=== PATIENT | female | born 1960 | race Caucasian/White ===

== ENCOUNTER 2022-04-05 12:28 | Emergency (ER) | payer MEDICAID, OTHER ==
[~2022-04-05] VITALS: Ht 154.9 cm; Wt 59.0 kg
[~2022-04-05 12:28] MED LIST: ACET-3117 PO; CITA20TA15 PO; DOCU100C82 PO; FERR325E14 PO; GABA300C PO; HYDR-5191 PO; TRAM-748 PO; TRAZ-343 PO; [UNRECOGNIZED DRUG - CODE] PO
[2022-04-05 12:34] VITALS: BP 130/78
--- NOTE | 2022-04-05 14:29 | NUR ---
Patient being evaluated by WALDEMAR PERRIN at TRIAGE ROOM.
--- NOTE | 2022-04-05 15:37 | NUR ---
PT TO ER BED 12 VIA W/C
--- NOTE | 2022-04-05 15:45 | NUR ---
Note undone in EDM - 04/05/22 at 1659 by [facility] PATIENT PRESENTS TO ED WITH RASH . PT STATES SHE HAS HAD A BAD RASH FOR ABOUT 3 WEEKS PAINFUL UPON MOVEMENT, BURING SENSATION 8-10. DENIES N/V/D; SKIN IS PINK/WARM/DRY;SKIN AROUND HIPS IS RED AND APPEARS SLIGHTLY INFLAMMED, SKIN PRESENT. AAOX4 WITH WEAK GAIT, AMULATES WITH ASSISNTANCE.; LUNGS CLEAR BL; HR EVEN AND REGULAR; PT DENIES ANY FEVER, CP, SOB, OR COUGH AT THIS TIME; PATIENT STATES PAIN OF 8/10 AT THIS TIME; VSS; PATIENT POSITIONED FOR COMFORT; HOB ELEVATED; BEDRAILS UP X2; BED DOWN. ER MD MADE AWARE OF PT STATUS. H/S: DIABETES, HTN MEDS; NONE ALLERGIES: CODEINE (NAUSEA) NOTED BY JANET RN STUDENT
--- NOTE | 2022-04-05 15:45 | NUR ---
PATIENT PRESENTS TO ED WITH RASH . PT STATES SHE HAS HAD A BAD RASH FOR ABOUT 3 WEEKS PAINFUL UPON MOVEMENT, BURING SENSATION 8/10 RADIATES TO BUTTOCKS. DENIES N/V/D; SKIN IS PINK/WARM/DRY;SKIN AROUND HIPS IS RED AND APPEARS SLIGHTLY INFLAMMED, SKIN PRESENT. AAOX4 WITH WEAK GAIT, AMULATES WITH ASSISNTANCE.; LUNGS CLEAR BL; HR EVEN AND REGULAR; PT DENIES ANY FEVER, CP, SOB, OR COUGH AT THIS TIME; PATIENT STATES PAIN OF 8/10 AT THIS TIME; VSS; PATIENT POSITIONED FOR COMFORT; HOB ELEVATED; BEDRAILS UP X2; BED DOWN. ER MD MADE AWARE OF PT STATUS. H/S: HTN MEDS; NONE ALLERGIES: CODEINE (NAUSEA) NOTED BY JANET RN STUDENT
[2022-04-05] MEDS ORDERED: HYD2.5O TP (17:01)
[2022-04-05] MEDS ORDERED: SULF-58 PO (17:01)
--- NOTE | 2022-04-05 17:05 | NUR ---
pt moved to lobby with spouse. states "i cant be in the room, it smells". pa present and aware
[2022-04-05 17:22] LABS: APPEARANCE,URINE CLEAR (CLEAR); BILIRUBIN,URINE 1+ (NEGATIVE); BLOOD, URINE NEGATIVE (NEGATIVE); COLOR,URINE YELLOW (YELLOW); LEUKOCYTE ESTERASE ,URINE TRACE (NEGATIVE); NITRITE, URINE NEGATIVE (NEGATIVE); PH,URINE 5.5 (5.0-9.0); UGLUCOSE NEGATIVE (NEGATIVE)
[2022-04-05 17:54] LABS: RBC,URINE 0-5 /HPF (0-5)
[2022-04-05 17:55] LABS: TRICHOMONAS,URINE None Seen /HPF (None Seen); YEAST,URINE None Seen /HPF (None Seen)
== END 2022-04-05 17:35 | disposition home or self-care (01) ==
LOC: MED 12:28
DX: N39.0 Urinary tract infection, site not specified (principal); R21 Rash and other nonspecific skin eruption; I10 Essential (primary) hypertension; I25.10 Atherosclerotic heart disease of native coronary artery without angina pectoris; Z79.899 Other long term (current) drug therapy
CPT/HCPCS: 81001; 99283

== ENCOUNTER 2022-05-05 09:50 | Emergency (ER) | payer MEDICAID ==
[~2022-05-05] VITALS: Ht 157.5 cm; Wt 72.6 kg
[~2022-05-05 09:50] MED LIST changes: +HYD2.5O TP; +SULF-58 PO
[2022-05-05 10:12] VITALS: BP 107/72
--- NOTE | 2022-05-05 11:09 | NUR ---
WALDEMAR DEL REAL CALLED FOR EVAL NO RESPONSE
[2022-05-05] MEDS ORDERED: ONDANSETRON 4 MG ODT PO ONE (12:45)
--- NOTE | 2022-05-05 12:52 | NUR ---
61F presents to ED with c/o rash for several weeks. Pt reports unable to recall how long she has had the rash. Pt reports a constant, burning like, 9/10 pain to body, N/V for unknown amount of days. Pt denies fevers, diarrhea, or recent change in soaps, lotions, and detergents. Red/dry irritation noted on all extremities upon assessment.
[2022-05-05 13:47] LABS: APPEARANCE,URINE HAZY (CLEAR); BILIRUBIN,URINE NEGATIVE (NEGATIVE); BLOOD, URINE NEGATIVE (NEGATIVE); COLOR,URINE ORANGE (YELLOW); LEUKOCYTE ESTERASE ,URINE 2+ (NEGATIVE); NITRITE, URINE NEGATIVE (NEGATIVE); PH,URINE 5.5 (5.0-9.0); UGLUCOSE NEGATIVE (NEGATIVE)
[2022-05-05 14:03] LABS: RBC,URINE 0-5 /HPF (0-5)
[2022-05-05 14:04] LABS: WBC,URINE 16-25 (MOD) /HPF (0-5)
[2022-05-05] MEDS ORDERED: CEPH-588 PO (14:21)
[2022-05-05] MEDS ORDERED: HYD2.5O TP (14:21)
[2022-05-05] MEDS ORDERED: ONDA-188 PO (14:22)
[2022-05-05 14:30] VITALS: BP 114/69
--- NOTE | 2022-05-05 14:30 | NUR ---
Patient discharged with v/s stable. Written and verbal after care instructions given and explained. Patient alert, oriented and verbalized understanding of instructions. Wheel Chair Assisted with to car. All questions addressed prior to discharge. ID band removed. Patient advised to follow up with PMD. Rx of KEFLEX, HYDROCORTISONE, ZOFRAN given. Patient educated on indication of medication including possible reaction and side effects. Opportunity to ask questions provided and answered.
== END 2022-05-05 14:30 | disposition home or self-care (01) ==
LOC: MED 09:50
DX: R21 Rash and other nonspecific skin eruption (principal); N39.0 Urinary tract infection, site not specified; R11.0 Nausea; I10 Essential (primary) hypertension; F17.210 Nicotine dependence, cigarettes, uncomplicated; Z79.899 Other long term (current) drug therapy
CPT/HCPCS: 81001; 87086; 99283; Q0162